=== PATIENT | male | born 1970 | race Caucasian/White ===

== ENCOUNTER 2019-03-15 14:16 | Emergency (ER) | payer BC ==
[2019-03-15 15:33] VITALS: BP 123/83
--- NOTE | 2019-03-15 15:44 | UC ---
Throat Pain/Nasal Fabian HPI - HPI Summary HPI Summary: 48-year-old male comes in with a chief complaint of upper respiratory tract infection symptoms and a sore throat. Sick for about a week. Sore throat some pretty bad especially last day. Fatigued sleeping a lot. He is a smoker no complaint of any respiratory congestion or distress. - History of Current Complaint Chief Complaint: UCGeneralIllness Stated Complaint: THROAT COMPLAINT Time Seen by Provider: 03/15/19 15:31 Pain Intensity: 2 - Allergies/Home Medications Allergies/Adverse Reactions: Allergies Allergy/AdvReac Type Severity Reaction Status Date / Time No Known Allergies Allergy Verified 03/15/19 15:34 Home Medications: Home Medications Acetaminophen [Tylenol Extra Strength] 3 tab PO ONCE 03/15/19 [History Confirmed 03/15/19] Benazepril/Hydrochlorothiazide [Benazepril HCl/Hydrochlor 20-25 mg-] 2 tab PO DAILY 03/15/19 [History Confirmed 03/15/19] Pravastatin Sodium 1 tab PO DAILY 03/15/19 [History Confirmed 03/15/19] PMH/Surg Hx/FS Hx/Imm Hx Previously Healthy: Yes Endocrine History: Dyslipidemia Cardiovascular History: Hypertension - Surgical History Surgical History: Yes Surgery Procedure, Year, and Place: appendectomy. hernia repair as a child - Family History Known Family History: Positive: Non-Contributory - Social History Alcohol Use: None Substance Use Type: None Smoking Status (MU): Heavy Every Day Tobacco Smoker Amount Used/How Often: 1 ppd Review of Systems All Other Systems Reviewed And Are Negative: Yes Constitutional: Positive: Fatigue Skin: Positive: Negative Eyes: Positive: Negative ENT: Positive: Sore Throat Respiratory: Positive: Negative Cardiovascular: Positive: Negative Gastrointestinal: Positive: Negative Motor: Positive: Negative Neurovascular: Positive: Negative Musculoskeletal: Positive: Negative Neurological: Positive: Negative Psychological: Positive: Negative Is Patient Immunocompromised?: No Physical Exam Triage Information Reviewed: Yes Appearance: Well-Appearing, No Pain Distress, Well-Nourished Vital Signs: Initial Vital Signs Temp 98.5 F 03/15/19 15:26 Pulse 80 03/15/19 15:26 Resp 16 03/15/19 15:26 BP 123/83 03/15/19 15:26 Pulse Ox 98 03/15/19 15:26 Vital Signs Reviewed: Yes Eye Exam: Normal Eyes: Positive: Conjunctiva Clear ENT: Positive: Pharyngeal erythema, Nasal congestion, TMs normal Neck: Positive: Supple Respiratory: Positive: Lungs clear, Normal breath sounds, No respiratory distress Cardiovascular: Positive: RRR Musculoskeletal: Positive: Strength Intact, ROM Intact Neurological: Positive: Alert Psychological: Positive: Age Appropriate Behavior Skin Exam: Normal Throat Pain/Nasal Course/Dx - Course Course Of Treatment: Rapid strep was negative. Patient is a smoker he's concerned about the possibility of throat cancer. At this time the plan is to treat with an antibiotic and also use an [id number] antihistamine to see if that helps with symptoms and then to follow-up with ear nose and throat. He'll be following up with either Dr. Pizarro here in [facility] or with the [facility]. At this time he has no difficulty breathing or swallowing. Reevaluate sooner if worse or any questions with. - Differential Dx/Diagnosis Provider Diagnosis: Sore throat, Fatigue Discharge ED - Sign-Out/Discharge Documenting (check all that apply): Patient Departure All imaging exams completed and their final reports reviewed: No Studies - Discharge Plan Condition: Stable Disposition: HOME Prescriptions: Amoxicillin PO (*) [Amoxicillin 875 MG (*)] 875 mg PO BID #20 tab Patient Education Materials: Pharyngitis (ED) Referrals: Alexus Soares PA [Primary Care Provider] - Nikita Pizarro MD [Medical Doctor] - Gurpreet Guzman MD [Medical Doctor] - Additional Instructions: FOLLOW UP WITH ENT. TAKE AN OVER THE COUNTER ANTIHISTAMINE SUCH ZYRTEC OR CLARITIN DIRECTED NEEDED IF HELPFUL. GET REEVALUATED SOONER IF WORSE OR ANY QUESTIONS OR CONCERNS. - Billing Disposition and Condition Condition: STABLE Disposition: Home
== END 2019-03-15 16:20 | disposition home or self-care (01) ==
LOC: UCCORT 14:16
DX: J02.9 Acute pharyngitis, unspecified (principal); R53.83 Other fatigue; I10 Essential (primary) hypertension; F17.210 Nicotine dependence, cigarettes, uncomplicated
CPT/HCPCS: 87651; 99202; G0463